=== PATIENT | female | born 1930 | race Caucasian/White ===

== ENCOUNTER 2016-02-18 21:21 | Inpatient (IN) | payer MEDICARE, BC ==
[~2016-02-18] VITALS: Ht 167.6 cm; Wt 55.3 kg
[~2016-02-18 21:21] MED LIST: ATOR40TA PO; BUDE180A IH; DIGO125T PO; FENT1PAT4 TD; LEVO75TA7 PO; METO25TA6 PO; MIRT7.5T10 PO; MULT-1005 PO; OLAN2.5T3 PO
[2016-02-18 22:58] LABS: BASOPHILS # (AUTO) 0.1 /CMM (0.0-0.2); BASOPHILS % (AUTO) 0.7 % (0.0-2.0); DIFF TOTAL % 100 %; EOSINOPHILS % (AUTO) 0.4 % (0.0-6.0); HEMATOCRIT 43 % (33-45); HEMOGLOBIN 14.1 g/dL (11.5-14.8); LYMPHOCYTES % (AUTO) 23.7 % (20.0-44.0); MEAN CORPUSCULAR HEMOGLOBIN 29 PG (26.0-33.0); MEAN CORPUSCULAR HGB CONC 33 g/dl (31.0-36.0); MEAN CORPUSCULAR VOLUME 88 fL (82-100); MONOCYTES # (AUTO) 0.7 /CMM (0.1-1.30); MONOCYTES % (AUTO) 8.3 % (2.0-12.0); NEUTROPHILS # (AUTO) 5.6 /CMM (1.8-8.9); NEUTROPHILS % (AUTO) 66.9 % (43.0-81.0); PLATELET COUNT (AUTO) 232 /CMM (150-450); RED BLOOD CELL COUNT(AUTO) 4.82 MIL/uL (4.0-5.2); WHITE BLOOD COUNT (AUTO) 8.4 K/uL (4.3-11.0)
[2016-02-18 23:09] LABS: CALCIUM, SERUM 8.7 mg/dL (8.5-10.1); CREATININE 1.1 mg/dL (0.6-1.3); POTASSIUM 3.9 mmol/L (3.5-5.1)
[2016-02-18 23:12] LABS: INR 1.19 (0.87-1.13); PROTHROMBIN TIME 12.9 SECS (9.5-12.7)
[2016-02-18 23:16] LABS: TROPONIN I 0.028 ng/mL (0.00-0.056)
[2016-02-18 23:22] LABS: ALBUMIN 3.9 g/dL (3.4-5.0); BILIRUBIN,DIRECT 0.2 mg/dL (0.0-0.2); BILIRUBIN,TOTAL 0.5 mg/dL (0.2-1.0); INDIRECT BILIRUBIN 0.3 mg/dL (0.0-1.1); TOTAL PROTEIN, SERUM 7.5 g/dL (6.4-8.2)
[2016-02-19 00:40] VITALS: BP 108/68
[2016-02-19] MEDS ORDERED: IPRATROPIUM NEB FS 0.5 MG/2.5 ML AMPUL.NEB NEB PRN (01:30)
[2016-02-19] MEDS ORDERED: ALBUTEROL FS 2.5 MG/3 ML VIAL.NEB ONE (03:26)
[2016-02-19] MEDS ORDERED: ALBUTEROL FS 2.5 MG/3 ML VIAL.NEB NEB SCH (03:30)
[2016-02-19 04:00] VITALS: BP 110/76
[2016-02-19 06:29] LABS: BASOPHILS % (AUTO) 0.4 % (0.0-2.0); DIFF TOTAL % 100 %; HEMATOCRIT 39 % (33-45); HEMOGLOBIN 12.9 g/dL (11.5-14.8); LYMPHOCYTES # (AUTO) 2.1 /CMM (0.8-4.8); LYMPHOCYTES % (AUTO) 26.2 % (20.0-44.0); MEAN CORPUSCULAR HEMOGLOBIN 29 PG (26.0-33.0); MEAN CORPUSCULAR HGB CONC 33 g/dl (31.0-36.0); MEAN CORPUSCULAR VOLUME 89 fL (82-100); MONOCYTES # (AUTO) 0.8 /CMM (0.1-1.30); MONOCYTES % (AUTO) 9.5 % (2.0-12.0); NEUTROPHILS # (AUTO) 5.1 /CMM (1.8-8.9); NEUTROPHILS % (AUTO) 63.9 % (43.0-81.0); PLATELET COUNT (AUTO) 205 /CMM (150-450); RED BLOOD CELL COUNT(AUTO) 4.39 MIL/uL (4.0-5.2)
[2016-02-19 07:04] LABS: CALCIUM, SERUM 8.4 mg/dL (8.5-10.1); CREATININE 1.1 mg/dL (0.6-1.3); PHOSPHORUS 3.4 mg/dL (2.5-4.9)
[2016-02-19] MEDS ORDERED: ALBUTEROL FS 2.5 MG/3 ML VIAL.NEB NEB PRN (07:55)
[2016-02-19 08:00] VITALS: BP 118/72
[2016-02-19] MEDS ORDERED: FUROSEMIDE 40 MG/4 ML VIAL IV SCH (09:00)
[2016-02-19] MEDS: MULTIVITAMINS,THERAPEUTIC 1 UDTAB TABLET PO SCH (09:53)
[2016-02-19] MEDS: METOPROLOL TARTRATE 25 MG TABLET PO SCH ×2 (09:54→17:10)
[2016-02-19] MEDS: LEVOTHYROXINE SODIUM 75 MCG TABLET PO SCH (09:55)
[2016-02-19] MEDS: OLANZAPINE 2.5 MG TABLET PO SCH ×2 (09:55→12:45)
[2016-02-19] MEDS ORDERED: ONDANSETRON HCL/PF 4 MG/2 ML VIAL IV PRN (11:30)
[2016-02-19] MEDS ORDERED: ACETAMINOPHEN 650 MG/20.3 ML UDC NG PRN (11:30)
[2016-02-19] MEDS ORDERED: FENTANYL TD PATCH (25 MCG/HR) 25 MCG/HR PATCH.TD72 TD SCH (12:00)
[2016-02-19] MEDS: DIGOXIN 0.125 MG TABLET PO SCH (12:46)
[2016-02-19 13:09] LABS: KETONES,URINE NEGATIVE (NEGATIVE); LEUKOCYTE ESTERASE ,URINE NEGATIVE (NEGATIVE); PH,URINE 6.5 (5.0-8.0)
[2016-02-19 13:11] LABS: ADD UA MICROSCOPIC YES
[2016-02-19 13:13] LABS: WBC,URINE NONE SEEN /HPF (0-3)
[2016-02-19 13:14] LABS: ADD URINE CULTURE NO
[2016-02-19 16:00] VITALS: BP 116/64
[2016-02-19 20:00] VITALS: BP 100/63
[2016-02-19] MEDS: ATORVASTATIN 40 MG TABLET PO SCH (21:02)
[2016-02-19] MEDS: MIRTAZAPINE 15 MG TABLET PO SCH (21:02)
[2016-02-20 05:29] LABS: BASOPHILS % (AUTO) 0.7 % (0.0-2.0); DIFF TOTAL % 100 %; EOSINOPHILS % (AUTO) 0.6 % (0.0-6.0); HEMATOCRIT 41 % (33-45); HEMOGLOBIN 13.5 g/dL (11.5-14.8); LYMPHOCYTES % (AUTO) 31.1 % (20.0-44.0); MEAN CORPUSCULAR HEMOGLOBIN 29 PG (26.0-33.0); MEAN CORPUSCULAR HGB CONC 33 g/dl (31.0-36.0); MEAN CORPUSCULAR VOLUME 88 fL (82-100); MONOCYTES # (AUTO) 0.6 /CMM (0.1-1.30); MONOCYTES % (AUTO) 9.2 % (2.0-12.0); NEUTROPHILS # (AUTO) 3.8 /CMM (1.8-8.9); NEUTROPHILS % (AUTO) 58.4 % (43.0-81.0); PLATELET COUNT (AUTO) 213 /CMM (150-450); RED BLOOD CELL COUNT(AUTO) 4.63 MIL/uL (4.0-5.2); WHITE BLOOD COUNT (AUTO) 6.5 K/uL (4.3-11.0)
[2016-02-20 05:38] LABS: DIGOXIN 1.41 ng/mL (0.90-2.00)
[2016-02-20 05:40] LABS: ALBUMIN 3.3 g/dL (3.4-5.0); BILIRUBIN,TOTAL 0.8 mg/dL (0.2-1.0); CALCIUM, SERUM 8.4 mg/dL (8.5-10.1); CREATININE 1.1 mg/dL (0.6-1.3); PHOSPHORUS 3.6 mg/dL (2.5-4.9); POTASSIUM 3.5 mmol/L (3.5-5.1); TOTAL PROTEIN, SERUM 6.4 g/dL (6.4-8.2)
[2016-02-20 05:54] LABS: THYROID STIMULATING HORMONE 0.885 uIU/mL (0.358-3.74)
[2016-02-20 08:11] VITALS: BP 102/62
[2016-02-20] MEDS: OLANZAPINE 2.5 MG TABLET PO SCH ×2 (08:30→12:12)
[2016-02-20] MEDS: LEVOTHYROXINE SODIUM 75 MCG TABLET PO SCH (08:30)
[2016-02-20] MEDS: MULTIVITAMINS,THERAPEUTIC 1 UDTAB TABLET PO SCH (08:30)
[2016-02-20] MEDS: METOPROLOL TARTRATE 25 MG TABLET PO SCH ×2 (08:32→16:32)
[2016-02-20] MEDS ORDERED: FUROSEMIDE 40 MG/4 ML VIAL IV SCH (09:00)
[2016-02-20] MEDS: DOXYCYCLINE HYCLATE (100 MG) 100 MG TABLET PO SCH ×2 (12:12→21:33)
[2016-02-20] MEDS: DIGOXIN 0.125 MG TABLET PO SCH (12:14)
[2016-02-20 16:00] VITALS: BP 100/62
[2016-02-20 20:00] VITALS: BP 109/62
[2016-02-20 20:18] VITALS: BP 109/62
[2016-02-20] MEDS: ATORVASTATIN 40 MG TABLET PO SCH (21:33)
[2016-02-20] MEDS: MIRTAZAPINE 15 MG TABLET PO SCH (21:34)
[2016-02-21 06:21] LABS: BASOPHILS % (AUTO) 0.2 % (0.0-2.0); EOSINOPHILS % (AUTO) 0.6 % (0.0-6.0); HEMATOCRIT 40 % (33-45); HEMOGLOBIN 13.2 g/dL (11.5-14.8); LYMPHOCYTES # (AUTO) 1.7 /CMM (0.8-4.8); LYMPHOCYTES % (AUTO) 26.1 % (20.0-44.0); MEAN CORPUSCULAR HEMOGLOBIN 29 PG (26.0-33.0); MEAN CORPUSCULAR HGB CONC 33 g/dl (31.0-36.0); MEAN CORPUSCULAR VOLUME 89 fL (82-100); MONOCYTES # (AUTO) 0.6 /CMM (0.1-1.30); MONOCYTES % (AUTO) 9.1 % (2.0-12.0); NEUTROPHILS # (AUTO) 4.2 /CMM (1.8-8.9); PLATELET COUNT (AUTO) 205 /CMM (150-450); RED BLOOD CELL COUNT(AUTO) 4.49 MIL/uL (4.0-5.2); WHITE BLOOD COUNT (AUTO) 6.5 K/uL (4.3-11.0)
[2016-02-21 06:53] LABS: CALCIUM, SERUM 8.4 mg/dL (8.5-10.1); CREATININE 1.2 mg/dL (0.6-1.3); PHOSPHORUS 3.5 mg/dL (2.5-4.9); POTASSIUM 3.2 mmol/L (3.5-5.1)
[2016-02-21 08:32] VITALS: BP 114/73
[2016-02-21 08:37] VITALS: BP 114/73
[2016-02-21] MEDS: OLANZAPINE 2.5 MG TABLET PO SCH ×2 (08:37→12:26)
[2016-02-21] MEDS: LEVOTHYROXINE SODIUM 75 MCG TABLET PO SCH (08:37)
[2016-02-21] MEDS: METOPROLOL TARTRATE 25 MG TABLET PO SCH (08:37)
[2016-02-21] MEDS: MULTIVITAMINS,THERAPEUTIC 1 UDTAB TABLET PO SCH (08:37)
[2016-02-21] MEDS: DOXYCYCLINE HYCLATE (100 MG) 100 MG TABLET PO SCH (08:37)
[2016-02-21] MEDS ORDERED: FUROSEMIDE 20 MG TABLET PO SCH (09:00)
[2016-02-21] MEDS ORDERED: Z GUARD REMEDY 2 OZ OINT TP SCH (10:30)
[2016-02-21] MEDS ORDERED: HYDROGEL DRESSING 90 GM TUBE TP SCH (10:30)
[2016-02-21] MEDS ORDERED: NEOMY SULF/BACITRAC ZN/POLY 15 GM TUBE TP SCH (10:30)
[2016-02-21] MEDS ORDERED: Z GUARD REMEDY 2 OZ OINT TP PRN (10:30)
[2016-02-21] MEDS: POTASSIUM CHLORIDE 20 MEQ TAB.PRT.SR PO SCH ×2 (12:26→13:45)
[2016-02-21] MEDS: DIGOXIN 0.125 MG TABLET PO SCH (12:28)
== END 2016-02-21 14:30 | disposition home or self-care (01) | DRG 314 ==
LOC: ER 21:25 → TELE 02-19 01:03 → MED 02-19 09:07
PROVIDERS: ADMIT Internal Medicine Nephrology; ATTEND Internal Medicine Nephrology
DX: T82.7XXA Infection and inflammatory reaction due to other cardiac and vascular devices, implants and grafts, initial encounter (principal); I50.33 Acute on chronic diastolic (congestive) heart failure; L03.119 Cellulitis of unspecified part of limb; I82.403 Acute embolism and thrombosis of unspecified deep veins of lower extremity, bilateral; F03.91 Unspecified dementia, unspecified severity, with behavioral disturbance; I73.9 Peripheral vascular disease, unspecified; I48.91 Unspecified atrial fibrillation; K57.90 Diverticulosis of intestine, part unspecified, without perforation or abscess without bleeding; E03.9 Hypothyroidism, unspecified; F41.9 Anxiety disorder, unspecified; Z66 Do not resuscitate; I10 Essential (primary) hypertension; G89.29 Other chronic pain; F03.90 Unspecified dementia, unspecified severity, without behavioral disturbance, psychotic disturbance, mood disturbance, and anxiety; D64.9 Anemia, unspecified; Z86.718 Personal history of other venous thrombosis and embolism; Z88.0 Allergy status to penicillin; Z91.040 Latex allergy status; Y83.9 Surgical procedure, unspecified as the cause of abnormal reaction of the patient, or of later complication, without mention of misadventure at the time of the procedure; Y92.199 Unspecified place in other specified residential institution as the place of occurrence of the external cause; F29 Unspecified psychosis not due to a substance or known physiological condition
CPT/HCPCS: 36415; 71010-TC; 80048-TC; 80053-TC; 80076-TC; 80162-TC; 81000-TC; 83735-TC; 83880; 84100-TC; 84443-TC; 84484-TC; 85025-TC; 85730-TC; 87081-TC; 93307-TC; A4606; A6248; A6403; J1940; Z7610